=== PATIENT | female | born 1985 | race Caucasian/White ===

== ENCOUNTER 2023-11-28 20:00 | Inpatient (IN) | payer MEDICAID, OTHER ==
[~2023-11-28] VITALS: Ht 157.5 cm; Wt 76.0 kg
[2023-11-28 20:33] VITALS: PULSE 86; RESP 18; O2SAT 95
[2023-11-28 21:36] LABS: Basophils # (auto) 0 10 ^3/uL (0-0.2); Eosinophils # (auto) 0.1 10 ^3/uL (0-0.8); Hemoglobin 8.8 g/dL (12.2-16.2); Lymphocytes # (auto) 1.2 10 ^3/uL (0.4-5.4); Neutrophils # (auto) 2.4 10 ^3/uL (1.6-8.6)
[2023-11-28 21:38] LABS: Basophils % (auto) 0.7 % (0.0-2.0); Eosinophils % (auto) 2.5 % (0.0-7.0); Hematocrit 26.2 % (36.0-46.0); Lymphocytes % (auto) 29.5 % (10.0-50.0); Mean Corpuscular Hemoglobin 26.7 pg (28.0-32.0); Mean Corpuscular Hgb Conc. 33.7 g/dL (32.0-36.0); Mean Corpuscular Volume 79.3 fL (80.0-100.0); Monocytes # (auto) 0.4 10 ^3/uL (0-1.3); Monocytes % (auto) 8.6 % (0.0-12.0); Neutrophils % (auto) 58.7 % (37.0-80.0); Nucleated Red Blood Cells % 0.2 %; Platelet Count (auto) 54 10^3/uL (140-450); Red Blood Cells 3.31 10^6/uL (4.0-5.20); Red Cell Distribution Width 20.5 % (11.8-14.3); White Blood Cell 4.2 10^3/uL (4.4-10.8)
[2023-11-28 21:50] LABS: Alanine Aminotransferase 16 U/L (7-40); Albumin 3.5 g/dL (3.2-4.8); Alkaline Phosphatase 112 U/L (46-116); Anion Gap 9 (5-15); Aspartate Aminotransferase 21 U/L (13-40); BUN/Creatinine Ratio 11.3 (10.0-20.0); Blood Urea Nitrogen 7 mg/dL (9-23); Calcium 8.3 mg/dL (8.7-10.4); Carbon Dioxide 23 mmol/L (20-30); Chloride 111 mmol/L (98-107); Glucose 117 mg/dL (74-106); Lipase 28 U/L (12-53); Potassium 2.7 mmol/L (3.5-5.1); Sodium 143 mmol/L (136-145)
[2023-11-28 21:51] LABS: Bilirubin, Total 1.1 mg/dL (0.2-1.0); Total Protein 7.8 g/dL (5.7-8.2)
[2023-11-29] VITALS (7 sets, daily range): BP systolic 99–115; BP diastolic 61–68; PULSE 60–95; RESP 16–94; TEMP 98.3–98.7; O2SAT 93–96
[2023-11-29] MEDS: POTASSIUM EFFERVESENT TAB 25 MEQ PO ONE (00:06)
[2023-11-29] MEDS: SODIUM CHLORIDE 0.9% 1,000 ML IV ONE (01:12)
[2023-11-29] MEDS: POTASSIUM CHL 20MEQ/100ML 100 ML IV SCH ×2 (01:12→13:17)
[2023-11-29] MEDS ORDERED: HYDROcodone-ACET 5/325MG TAB PO PRN (01:45)
[2023-11-29] MEDS ORDERED: ONDANSETRON HCL 4 MG/2 ML VIAL IV PRN (01:45)
[2023-11-29] MEDS ORDERED: DOCUSATE SOD 100 MG CAP PO PRN (01:45)
[2023-11-29] MEDS ORDERED: ACETAMINOPHEN 325 MG TAB PO PRN (01:45)
[2023-11-29] MEDS ORDERED: MORPHINE SULFATE INJ 2 MG/ml SYRG IV PRN ×2 (01:45)
[2023-11-29] MEDS ORDERED: NITROGLYCERIN 0.4 MG SL TAB SL PRN (01:45)
[2023-11-29] MEDS ORDERED: NOREPINEPHRINE 8 MG/250ML KIT 250 ML IV SCH (02:15)
[2023-11-29] MEDS: SODIUM CHLOR 0.9% PF (SALINE LOCK) 10ML VIAL/SYR IV SCH (04:02)
[2023-11-29 05:30] LABS: Basophils # (auto) 0 10 ^3/uL (0-0.2); Basophils % (auto) 0.4 % (0.0-2.0); Eosinophils # (auto) 0.1 10 ^3/uL (0-0.8); Hemoglobin 8.5 g/dL (12.2-16.2); Lymphocytes # (auto) 1.2 10 ^3/uL (0.4-5.4); Monocytes # (auto) 0.3 10 ^3/uL (0-1.3); Platelet Count (auto) 52 10^3/uL (140-450); White Blood Cell 3.7 10^3/uL (4.4-10.8)
[2023-11-29 05:33] LABS: Eosinophils % (auto) 2.4 % (0.0-7.0); Hematocrit 25.9 % (36.0-46.0); Lymphocytes % (auto) 33.9 % (10.0-50.0); Mean Corpuscular Hemoglobin 26.4 pg (28.0-32.0); Mean Corpuscular Hgb Conc. 32.9 g/dL (32.0-36.0); Mean Corpuscular Volume 80.3 fL (80.0-100.0); Monocytes % (auto) 8.7 % (0.0-12.0); Neutrophils % (auto) 54.6 % (37.0-80.0); Nucleated Red Blood Cells % 0.3 %; Red Blood Cells 3.23 10^6/uL (4.0-5.20); Red Cell Distribution Width 20.7 % (11.8-14.3)
[2023-11-29 07:09] LABS: Alanine Aminotransferase 15 U/L (7-40); Albumin 3.4 g/dL (3.2-4.8); Alkaline Phosphatase 98 U/L (46-116); Aspartate Aminotransferase 21 U/L (13-40); Blood Urea Nitrogen 7 mg/dL (9-23); Calcium 8.4 mg/dL (8.7-10.4); Glucose 96 mg/dL (74-106); Potassium 3.1 mmol/L (3.5-5.1); Sodium 144 mmol/L (136-145)
[2023-11-29 07:10] LABS: Bilirubin, Total 1.1 mg/dL (0.2-1.0); Total Protein 7.3 g/dL (5.7-8.2)
[2023-11-29 08:38] LABS: Anion Gap 10 (5-15); Carbon Dioxide 21 mmol/L (20-30); Chloride 113 mmol/L (98-107)
[2023-11-29] MEDS: levETIRAcetam 500 mg/100ml 100 ML IV SCH (10:18)
[2023-11-29] MEDS: ASPirin 81 mg TAB PO SCH (10:19)
[2023-11-29] MEDS ORDERED: LACT10SO3 PO (12:08)
[2023-11-29] MEDS ORDERED: KEP500T PO (12:08)
[2023-11-29] MEDS ORDERED: FOLI-119 PO (12:08)
[2023-11-29] MEDS ORDERED: MID10T PO (12:08)
[2023-11-29] MEDS ORDERED: PANT1INJ3 PO (12:08)
[2023-11-29] MEDS ORDERED: HYDR-3682 PO (12:08)
[2023-11-29] MEDS ORDERED: ALBU108A5 IN (12:11)
[2023-11-29] MEDS ORDERED: VENL-194 PO (12:16)
[2023-11-29] MEDS ORDERED: QUET1TAB11 PO (12:16)
[2023-11-29] MEDS ORDERED: BECL80AE11 IN (12:16)
[2023-11-29] MEDS ORDERED: THIA100T10 PO (12:16)
[2023-11-29] MEDS ORDERED: RIFA1INJ2 PO (12:16)
[2023-11-29] MEDS: MAGNESIUM SULFATE 1GM/100ML 100 ML IV SCH (15:40)
[2023-11-29 15:49] LABS: Magnesium 1.3 mg/dL (1.6-2.6)
[2023-11-29 15:51] LABS: Phosphorus 3.7 mg/dL (2.4-5.1)
[2023-11-30] VITALS (8 sets, daily range): BP systolic 92–133; BP diastolic 52–88; PULSE 72–94; RESP 16–18; TEMP 97.7–98.6; O2SAT 88–96
[2023-11-30 07:48] LABS: Basophils # (auto) 0 10 ^3/uL (0-0.2); Eosinophils # (auto) 0.1 10 ^3/uL (0-0.8); Eosinophils % (auto) 2.7 % (0.0-7.0); Hemoglobin 8.5 g/dL (12.2-16.2); Monocytes # (auto) 0.2 10 ^3/uL (0-1.3); Monocytes % (auto) 7.6 % (0.0-12.0); White Blood Cell 3.2 10^3/uL (4.4-10.8)
[2023-11-30 07:51] LABS: Basophils % (auto) 0.5 % (0.0-2.0); Hematocrit 25.7 % (36.0-46.0); Lymphocytes % (auto) 31.4 % (10.0-50.0); Mean Corpuscular Hemoglobin 26.5 pg (28.0-32.0); Mean Corpuscular Hgb Conc. 33.2 g/dL (32.0-36.0); Mean Corpuscular Volume 79.9 fL (80.0-100.0); Neutrophils # (auto) 1.8 10 ^3/uL (1.6-8.6); Neutrophils % (auto) 57.8 % (37.0-80.0); Nucleated Red Blood Cells % 0.1 %; Platelet Count (auto) 49 10^3/uL (140-450); Red Blood Cells 3.22 10^6/uL (4.0-5.20); Red Cell Distribution Width 20.6 % (11.8-14.3)
[2023-11-30 08:03] LABS: Alanine Aminotransferase 16 U/L (7-40); Alkaline Phosphatase 89 U/L (46-116); Anion Gap 9 (5-15); Aspartate Aminotransferase 20 U/L (13-40); Calcium 8.6 mg/dL (8.7-10.4); Carbon Dioxide 23 mmol/L (20-30); Chloride 114 mmol/L (98-107); Glucose 96 mg/dL (74-106); Magnesium 1.6 mg/dL (1.6-2.6); Potassium 3.2 mmol/L (3.5-5.1); Sodium 146 mmol/L (136-145)
[2023-11-30 08:04] LABS: Bilirubin, Total 1.3 mg/dL (0.2-1.0); Total Protein 7.2 g/dL (5.7-8.2)
[2023-11-30 08:06] LABS: BUN/Creatinine Ratio 10.2 (10.0-20.0); Blood Urea Nitrogen < 5 mg/dL (9-23)
[2023-11-30 08:12] LABS: Albumin 3.4 g/dL (3.2-4.8)
[2023-11-30 08:31] LABS: Anisocytosis Slight; Ovalocytes FEW; Platelet Estimate Decreased
[2023-11-30] MEDS: MAGNESIUM SULFATE 1GM/100ML 100 ML IV SCH (12:33)
[2023-11-30] MEDS: POTASSIUM CHL 20MEQ/100ML 100 ML IV SCH (16:19)
[2023-12-01] VITALS (7 sets, daily range): BP systolic 99–115; BP diastolic 67–77; PULSE 66–90; RESP 18–19; TEMP 98–98.6; O2SAT 94–96
[2023-12-01 06:32] LABS: Basophils # (auto) 0 10 ^3/uL (0-0.2); Eosinophils # (auto) 0.1 10 ^3/uL (0-0.8); Eosinophils % (auto) 2.8 % (0.0-7.0); Hematocrit 26.9 % (36.0-46.0); Hemoglobin 8.9 g/dL (12.2-16.2); Mean Corpuscular Volume 80.2 fL (80.0-100.0); Monocytes # (auto) 0.3 10 ^3/uL (0-1.3); Nucleated Red Blood Cells % 0.2 %; Red Blood Cells 3.35 10^6/uL (4.0-5.20); White Blood Cell 3.4 10^3/uL (4.4-10.8)
[2023-12-01 06:36] LABS: Alanine Aminotransferase 16 U/L (7-40); Albumin 3.4 g/dL (3.2-4.8); Alkaline Phosphatase 89 U/L (46-116); Anion Gap 11 (5-15); Aspartate Aminotransferase 20 U/L (13-40); Basophils % (auto) 0.3 % (0.0-2.0); Bilirubin, Total 1.3 mg/dL (0.2-1.0); Calcium 8.8 mg/dL (8.7-10.4); Carbon Dioxide 22 mmol/L (20-30); Chloride 113 mmol/L (98-107); Glucose 93 mg/dL (74-106); Lymphocytes # (auto) 1.2 10 ^3/uL (0.4-5.4); Lymphocytes % (auto) 35.4 % (10.0-50.0); Magnesium 1.6 mg/dL (1.6-2.6); Mean Corpuscular Hemoglobin 26.7 pg (28.0-32.0); Mean Corpuscular Hgb Conc. 33.3 g/dL (32.0-36.0); Monocytes % (auto) 8.5 % (0.0-12.0); Neutrophils # (auto) 1.8 10 ^3/uL (1.6-8.6); Platelet Count (auto) 52 10^3/uL (140-450); Red Cell Distribution Width 20.7 % (11.8-14.3); Sodium 146 mmol/L (136-145); Total Protein 7.3 g/dL (5.7-8.2)
[2023-12-01 06:38] LABS: BUN/Creatinine Ratio 10.4 (10.0-20.0); Blood Urea Nitrogen < 5 mg/dL (9-23)
[2023-12-01] MEDS: MAGNESIUM SULFATE 1GM/100ML 100 ML IV SCH (13:17)
[2023-12-01] MEDS: POTASSIUM CHL 20MEQ/100ML 100 ML IV SCH (19:45)
[2023-12-02] VITALS (8 sets, daily range): BP systolic 104–121; BP diastolic 66–75; PULSE 61–87; RESP 15–18; TEMP 98–99.2; O2SAT 95–98
[2023-12-02 07:27] LABS: Basophils # (auto) 0 10 ^3/uL (0-0.2); Eosinophils # (auto) 0.1 10 ^3/uL (0-0.8); Eosinophils % (auto) 2.8 % (0.0-7.0); Lymphocytes # (auto) 1.1 10 ^3/uL (0.4-5.4); Monocytes # (auto) 0.2 10 ^3/uL (0-1.3); Platelet Count (auto) 55 10^3/uL (140-450)
[2023-12-02 07:32] LABS: Basophils % (auto) 0.4 % (0.0-2.0); Hematocrit 24.8 % (36.0-46.0); Hemoglobin 8.5 g/dL (12.2-16.2); Lymphocytes % (auto) 34.8 % (10.0-50.0); Mean Corpuscular Hemoglobin 27.6 pg (28.0-32.0); Mean Corpuscular Hgb Conc. 34.4 g/dL (32.0-36.0); Mean Corpuscular Volume 80.1 fL (80.0-100.0); Monocytes % (auto) 7.8 % (0.0-12.0); Neutrophils # (auto) 1.7 10 ^3/uL (1.6-8.6); Neutrophils % (auto) 54.2 % (37.0-80.0); Nucleated Red Blood Cells % 0.2 %; Red Cell Distribution Width 21.3 % (11.8-14.3); White Blood Cell 3.1 10^3/uL (4.4-10.8)
[2023-12-02 08:06] LABS: Complement C3 101 mg/dL (82-167)
[2023-12-02 08:34] LABS: Alanine Aminotransferase 17 U/L (7-40); Albumin 3.4 g/dL (3.2-4.8); Alkaline Phosphatase 89 U/L (46-116); Anion Gap 12 (5-15); Aspartate Aminotransferase 22 U/L (13-40); BUN/Creatinine Ratio 10.6 (10.0-20.0); Bilirubin, Total 1.4 mg/dL (0.2-1.0); Blood Urea Nitrogen 5 mg/dL (9-23); Calcium 8.8 mg/dL (8.7-10.4); Carbon Dioxide 21 mmol/L (20-30); Chloride 113 mmol/L (98-107); Glucose 84 mg/dL (74-106); Magnesium 1.5 mg/dL (1.6-2.6); Potassium 3.2 mmol/L (3.5-5.1); Sodium 146 mmol/L (136-145); Total Protein 7.4 g/dL (5.7-8.2)
[2023-12-02 08:36] LABS: INR 1.5 (0.9-1.15); Partial Thromboplastin Time 33.2 SEC (24.5-34.5); Prothrombin Time 15.4 sec (9.3-11.8)
[2023-12-02 11:08] LABS: Anti-Nuclear Antibody Direct Negative (Negative)
[2023-12-02] MEDS: POTASSIUM CHL 20 Meq TABLET PO ONE (12:25)
[2023-12-02] MEDS: PANTOPRAZOLE 40 MG TAB PO ONE (12:25)
[2023-12-02] MEDS: MAGNESIUM SULFATE 1GM/100ML 100 ML IV SCH (12:26)
[2023-12-02] MEDS: FOLIC ACID 1 MG TAB PO ONE (12:26)
[2023-12-02 14:37] LABS: Urine Bacteria FEW /hpf (None Seen); Urine Blood Negative /uL (Negative); Urine Clarity Clear (Clear); Urine Color Light-Yellow (Yellow); Urine Mucus FEW (None Seen); Urine Protein, UAD Negative (Negative); Urine Specific Gravity 1.006 (1.001-1.035); Urine Urobilinogen 3 mg/dL (Negative); Urine WBC 2 /hpf (0 - 5); Urine pH 6.5 (5.0-9.0)
[2023-12-02] MEDS: levETIRAcetam 500 MG TAB PO SCH (22:34)
[2023-12-03 01:00] VITALS: BP 123/73; PULSE 85; RESP 16; TEMP 98; O2SAT 95
[2023-12-03 05:00] VITALS: BP 120/74; PULSE 82; RESP 16; TEMP 97.9; O2SAT 95
[2023-12-03] MEDS: PANTOPRAZOLE 40 MG TAB PO SCH (06:03)
[2023-12-03 06:23] LABS: Calcium 8.8 mg/dL (8.7-10.4); Chloride 113 mmol/L (98-107); Potassium 3.1 mmol/L (3.5-5.1); Sodium 143 mmol/L (136-145)
[2023-12-03 06:24] LABS: Anion Gap 9 (5-15); Carbon Dioxide 21 mmol/L (20-30)
[2023-12-03 06:29] LABS: BUN/Creatinine Ratio 9.8 (10.0-20.0); Blood Urea Nitrogen < 5 mg/dL (9-23); Glucose 89 mg/dL (74-106)
[2023-12-03 06:30] LABS: Magnesium 1.6 mg/dL (1.6-2.6)
[2023-12-03 08:06] LABS: Haptoglobin 31 mg/dL (33-278); Immunoglobulin A 618 mg/dL (87-352); Immunoglobulin G, Serum 2189 mg/dL (586-1602); Immunoglobulin M 299 mg/dL (26-217)
[2023-12-03 09:00] VITALS: BP 105/67; PULSE 87; RESP 16; TEMP 98.1; O2SAT 95
[2023-12-03] MEDS: VENLAFAXINE HCL 37.5mg XR cap PO SCH (10:55)
[2023-12-03] MEDS: FOLIC ACID 1 MG TAB PO SCH (10:58)
[2023-12-03 13:00] VITALS: BP 104/69; PULSE 79; RESP 16; TEMP 98.3; O2SAT 96
[2023-12-03] MEDS: MAGNESIUM SULFATE 1GM/100ML 100 ML IV SCH (14:53)
[2023-12-03] MEDS: POTASSIUM EFFERVESENT TAB 25 MEQ PO ONE (14:57)
[2023-12-03 16:06] LABS: Kappa Lite Chain Free Serum 45.3 mg/L (3.3-19.4)
[2023-12-03 16:55] VITALS: BP 118/63; PULSE 58; RESP 18; TEMP 98; O2SAT 91
[2023-12-03 17:02] VITALS: BP 118/63; PULSE 58; RESP 18; TEMP 98; O2SAT 91
[2023-12-04 07:07] LABS: Albumin 2.6 g/dL (2.9-4.4); Alpha-1-Globulin 0.3 g/dL (0.0-0.4); Alpha-2-Globulin 0.5 g/dL (0.4-1.0); Gamma Globulin 2.4 g/dL (0.4-1.8); Globulin Total 4.4 g/dL (2.2-3.9)
[2023-12-04 08:56] LABS: Hepatitis B Surface Antigen Negative (Negative)
[2023-12-04 09:16] LABS: Hepatitis A Ab IgM Negative
[2023-12-04 09:17] LABS: Hepatitis B Core IgM Negative; Hepatitis C Antibody Negative (Negative)
[2023-12-04 18:06] LABS: Fibrin Degredation Products <5 ug/mL (<5)
== END 2023-12-03 18:30 | disposition home or self-care (01) | DRG 425 ==
LOC: EDSEX 20:00 → ER 20:00 → EDBD 20:00 → TELE 11-29 01:40 → TELE-WESTW 11-29 01:48 → WEST WING 12-02 17:15
PROVIDERS: ADMIT Nurse Practitioner Family; ATTEND Internal Medicine
DX: E87.6 Hypokalemia (principal); D61.818 Other pancytopenia; R53.2 Functional quadriplegia; K70.30 Alcoholic cirrhosis of liver without ascites; G40.909 Epilepsy, unspecified, not intractable, without status epilepticus; D50.9 Iron deficiency anemia, unspecified; E83.42 Hypomagnesemia; E66.9 Obesity, unspecified; Z74.01 Bed confinement status; I69.354 Hemiplegia and hemiparesis following cerebral infarction affecting left non-dominant side; Z68.31 Body mass index [BMI] 31.0-31.9, adult
CPT/HCPCS: 36415; 71045; 80048; 80053; 80074; 81001; 82607; 82784; 83010; 83521; 83615; 83690; 83735; 83880; 83935; 83970; 84100; 84155; 84165; 85025; 85045; 85362; 85384; 85610; 85730; 86038; 86160; 86334; 86703; 93005; G0378; J3480